=== PATIENT | female | born 1985 | race Caucasian/White ===

== ENCOUNTER → 2024-12-24 09:07 | Outpatient (REF) | payer BC, SELFPAY | LOC: WDC 09:07 | PROVIDERS: ATTENDING PHYSICIAN Student in an Organized Health Care Education/Training Program | DX: N63.10 Unspecified lump in the right breast, unspecified quadrant (principal); N63.12 Unspecified lump in the right breast, upper inner quadrant | CPT/HCPCS: 76642; 77062; 77066 ==